=== PATIENT | male | born 1965 | race Caucasian/White ===

== ENCOUNTER 2022-04-18 12:43 | Day surgery (SDC) | payer OTHER ==
[~2022-04-18] VITALS: Ht 172.7 cm; Wt 103.3 kg
--- NOTE | 2022-04-18 13:51 | NUR ---
04/18/22 1351 Lety Davis TETRACAINE TO LEFT EYE AT 1345 PLEDGET TO LEFT EYE AT 1348 BY [facility].G
== END 2022-04-18 15:25 | disposition home or self-care (01) ==
LOC: ORSCSDS 12:43
PROVIDERS: Ophthalmology
PROC: 08RK3JZ Replacement of Left Lens with Synthetic Substitute, Percutaneous Approach (ICD-10-PCS; principal; 2022-04-18 14:00)
DX: H25.12 Age-related nuclear cataract, left eye (principal); H52.202 Unspecified astigmatism, left eye; F17.210 Nicotine dependence, cigarettes, uncomplicated; E66.9 Obesity, unspecified; Z68.34 Body mass index [BMI] 34.0-34.9, adult
CPT/HCPCS: J2001; J2250; J3010; J3301; J7040; V2632

== ENCOUNTER 2022-05-09 07:48 | Day surgery (SDC) | payer OTHER ==
[~2022-05-09] VITALS: Ht 172.7 cm; Wt 102.3 kg
--- NOTE | 2022-05-09 08:47 | NUR ---
05/09/22 0847 Cynthia Medrano CALL LIGHT WITHIN REACH. TETRACAINE IN THE RIGHT EYE AT 0843 PLEDGETT AT 0845
== END 2022-05-09 10:40 | disposition home or self-care (01) ==
LOC: ORSCSDS 07:48
PROVIDERS: Ophthalmology
PROC: 08923ZZ Drainage of Right Anterior Chamber, Percutaneous Approach (ICD-10-PCS; principal; 2022-05-09 09:30)
PROC: 08DJ3ZZ Extraction of Right Lens, Percutaneous Approach (ICD-10-PCS; principal; 2022-05-09 09:30)
DX: H25.11 Age-related nuclear cataract, right eye (principal); H40.9 Unspecified glaucoma; E66.9 Obesity, unspecified; Z68.34 Body mass index [BMI] 34.0-34.9, adult; Z96.1 Presence of intraocular lens; H40.033 Anatomical narrow angle, bilateral; F17.210 Nicotine dependence, cigarettes, uncomplicated
CPT/HCPCS: J2001; J2250; J3010; J3301; J7040; V2632